=== PATIENT | male | born 1955 | race Caucasian/White ===

== ENCOUNTER → 2025-09-23 15:01 | Outpatient (REF) | payer OTHER, SELFPAY | LOC: RAD 15:01 | PROVIDERS: ATTENDING PHYSICIAN Internal Medicine Rheumatology; FAMILY PHYSICIAN Family Medicine; OTHER PHYSICIAN Surgery Vascular Surgery | DX: M79.89 Other specified soft tissue disorders (principal) | CPT/HCPCS: 93971 ==